=== PATIENT | female | born 1985 | race Caucasian/White ===

== ENCOUNTER 2016-11-18 05:47 | Inpatient (IN) | payer OTHER ==
--- NOTE | 2016-11-18 06:04 | P.HPOB ---
History of Present Illness H&P Date: 11/18/16 Chief Complaint: Patient is requesting elective induction of labor. This patient is a pleasant 31-year-old 3 para 1 female estimated date of confinement 11/19/2016 estimated gestational age 39-6/7 weeks who presents to labor and delivery for requested induction of labor. Patient's care has been uncomplicated. Review of Systems Constitutional: Denies chills, Denies fever Ears, nose, mouth and throat: Denies headache, Denies sore throat Cardiovascular: Denies chest pain, Denies shortness of breath Respiratory: Denies cough Gastrointestinal: Reports heartburn Genitourinary: Reports Menstruation: Reports amenorrhea Musculoskeletal: Denies myalgias Integumentary: Denies pruritus, Denies rash Neurological: Denies numbness, Denies weakness Psychiatric: Denies anxiety, Denies depression Endocrine: Denies fatigue, Denies weight change Past Medical History Past Medical History: No Reported History History of Any Multi-Drug Resistant Organisms: None Reported Past Surgical History: Tonsillectomy Additional Past Surgical History / Comment(s): Patient's had a cyst removed from her right wrist and a D&C. Past Anesthesia/Blood Transfusion Reactions: No Reported Reaction Past Psychological History: No Psychological Hx Reported Smoking Status: Never smoker Past Alcohol Use History: None Reported Past Drug Use History: None Reported Medications and Allergies Home Medications Medication Instructions Recorded Confirmed Type Pnv with Ca,No.72/Iron/FA 1 PO DAILY 11/18/16 History [ Plus Tablet] Allergies Allergy/AdvReac Type Severity Reaction Status Date / Time Penicillins AdvReac Rash/Hives Verified 11/18/16 06:01 Exam - OBG Physical Exam Abdomen: bowel sounds normal, no diffuse tenderness, no bruit present, no guarding noted, no hepatomegaly, no splenomegaly, no mass Vulva: both: normal Vagina: normal moisture, no discharge Cervix: Cervix in the office is 2 cm and soft. Cervix: no lesion, no discharge Uterus: enlarged (Fundal height is consistent with a term .) Results blood work shows she is O positive, rubella immune, RPR nonreactive, hepatitis B-, group B strep was negative, Glucola was normal, ultrasounds have been normal. Assessment and Plan (1) Third trimester Narrative/Plan: This is a pleasant 31-year-old 3 para 1 female 39-6/7 weeks gestation who requests induction of labor. Plan is induction of labor and anticipate vaginal delivery. Status: Acute (2) Elective induction of labor planned Status: Acute
[2016-11-18] MEDS ORDERED: CARBOPROST TROMETHAMINE 250 MCG/ML 1 ML AMP IM PRN (06:11)
[2016-11-18] MEDS ORDERED: METHYLERGONOVINE 0.2 MG/ML 1 ML AMP IM PRN (06:11)
[2016-11-18] MEDS ORDERED: OXYTOCIN 30 UNITS/500 ML NS 30 UNIT in SALINE 1 500ML.BAG IV SCH ×2 (06:11→19:59)
[2016-11-18] MEDS ORDERED: TERBUTALINE 1 MG/ML VIAL SQ PRN (06:11)
[2016-11-18] MEDS ORDERED: LIDOCAINE 1% (PF) 10 MG/ML (30 ML SDV) SQ PRN (06:11)
[2016-11-18] MEDS ORDERED: OXYTOCIN 10 UNIT/ML 1 ML VIAL IM PRN (06:11)
[2016-11-18] MEDS: LACTATED RINGERS 1,000 ML IV SCH ×3 (06:20→15:44)
[2016-11-18 06:26] LABS: Basophils # (A) 0.1 k/uL (0-0.2); Basophils % (A) 0 %; CH 28.6; Eosinophils # (A) 0.2 k/uL (0-0.7); Eosinophils % (A) 2 %; HCT 32.7 % (34.0-46.0); HDW 3.23; HGB 10.7 gm/dL (11.4-16.0); Luc # (Auto) 0.24; Luc % (Auto) 2; Lymphocytes # (A) 1.3 k/uL (1.0-4.8); Lymphocytes % (A) 11 %; MCH 28.6 pg (25.0-35.0); MCHC 32.8 g/dL (31.0-37.0); MCV 87.2 fL (80.0-100.0); Mean Platelet Volume 6.9; Monocytes # (A) 0.7 k/uL (0-1.0); Monocytes % (A) 6 %; Neutrophils # (A) 8.6 k/uL (1.3-7.7); Neutrophils % (A) 78 %; RBC 3.75 m/uL (3.80-5.40); WBC 11.1 k/uL (3.8-10.6); WBC (Perox) 11.82
[2016-11-18 07:27] VITALS: BMI 31.6
[2016-11-18] MEDS ORDERED: BUTORPHANOL 1 MG/ML 1 ML VIAL IV PRN (11:41)
[2016-11-18] MEDS ORDERED: fentaNYL (PF) 50 MCG/ML 5 ML AMP ONE (15:25)
[2016-11-18] MEDS ORDERED: SODIUM CHLORIDE 0.9% 100 ML BAG ONE (15:25)
[2016-11-18] MEDS ORDERED: BUPIVACAINE (PF) 0.25% 30 ML VIAL ONE (15:25)
[2016-11-18] MEDS ORDERED: BUPIVACAINE (PF) 0.25% 25 ML, fentaNYL (PF) 200 MCG in SODIUM CHLORIDE 0.9% 71 ML EPIDURAL ONE (16:00)
[2016-11-18] MEDS ORDERED: CLINDAMYCIN 900 MG in DEXTROSE 5% IN WATER 50 ML IVPB STA ×2 (16:53)
--- NOTE | 2016-11-18 19:55 | P.PROBDLV ---
Vaginal Delivery Note - . Vaginal Delivery Note: Normal vaginal delivery viable female Apgars 9 and 9 delivery time is 1940 hrs. Please see dictated H&P for intimate details of this patient's admission. Brief summary this is a pleasant 31-year-old 3 para 1 female 39-6/7 weeks gestation who is admitted to labor and delivery this morning for requested induction of labor. On admission patient is to summary dilators artificial rupture membranes for clear fluid. Labor is augmented with Pitocin. Patient does progress and gets an epidural for pain control proximally 4-5 cm dilated. Patient thereafter does continue to progress and pushes the head to the perineum. Posterior perineum is supported and we have controlled delivery of the infant's head over the intact perineum. Mouth and nares are bulb suctioned there is no evidence of nuchal cord. With gentle downward traction we then have delivery the anterior and posterior shoulder and rest this 's body. Is a vigorous viable female infant Apgars are 9 and 9 delivery time is 1940 hrs. After delivery of the the umbilical cord is doubly clamped and cut and appears to be trivascular. The is late on the mother's abdomen. The placenta is spontaneously delivered intact. Estimated blood loss is 100 mL. There are no lacerations no repair. All counts are correct 3.
[2016-11-18] MEDS ORDERED: diphenhydrAMINE 50 MG/ML 1 ML VIAL IVP PRN (19:59)
[2016-11-18] MEDS ORDERED: HYDROCORTISONE 2.5% RECTAL CREAM 30 GM TUBE RECTAL PRN (19:59)
[2016-11-18] MEDS ORDERED: BENZOCAINE/MENTHOL SPRAY 1 GM/SPRAY AEROSOL TOPICAL PRN (19:59)
[2016-11-18] MEDS ORDERED: Acetaminophen-Codeine 300-30mg TAB PO PRN ×2 (19:59)
[2016-11-18] MEDS ORDERED: ACETAMINOPHEN TAB 325 MG TAB PO PRN (19:59)
[2016-11-18] MEDS ORDERED: ZOLPIDEM 5 MG TAB PO PRN (19:59)
[2016-11-18] MEDS ORDERED: diphenhydrAMINE 25 MG CAP PO PRN (19:59)
[2016-11-18] MEDS ORDERED: WITCH HAZEL 1 EACH MED..PAD TOPICAL PRN (19:59)
[2016-11-18] MEDS ORDERED: LANOLIN CREAM 5 GM TUBE TOPICAL PRN (19:59)
[2016-11-18] MEDS ORDERED: SIMETHICONE 80 MG CHEWABLE PO PRN (19:59)
[2016-11-18] MEDS: IBUPROFEN 600 MG TAB PO PRN (20:12)
[2016-11-18] MEDS: SENNOSIDES-DOCUSATE SODIUM 1 EACH TAB PO SCH (20:40)
--- NOTE | 2016-11-19 06:21 | P.PNOBGVD ---
Subjective - Subjective Patient reports: Reports appetite normal, Reports voiding normally, Reports pain well controlled, Reports ambulating normally [place]: doing well Objective - Latest Vital Signs Latest vital signs: Vital Signs Temp Pulse Resp BP 11/19/16 04:00 97.3 F L 81 16 118/75 11/18/16 23:38 97.9 F 108 H 16 101/71 11/18/16 21:45 97.7 F 113 H 16 105/62 11/18/16 21:15 92 16 129/70 11/18/16 20:45 112 H 16 126/72 11/18/16 20:30 102 H 16 120/64 11/18/16 20:15 103 H 16 122/74 11/18/16 20:00 106 H 16 129/75 11/18/16 19:45 105 H 16 137/82 11/18/16 07:20 95.7 F L 107 H 18 110/72 Intake and Output 11/18/16 11/18/16 11/19/16 14:59 22:59 06:59 Intake Total 1000 1213.4 600 Output Total 150 Balance 1000 1063.4 600 Intake: IV 1200 Lactated Ringers 1,000 ml 800 @ 125 mls/hr IV .Q8H LENA Rx#:[id number] Oxytocin 30 Units/500 ml 400 Ns 30 unit In Saline 1 500ml.bag @ 120 MILLIUNIT /MIN 120 mls/hr IV . Q4H10M LENA Rx#:[id number] Intake, IV Titration 1000 13.4 Amount Lactated Ringers 1,000 ml 1000 @ 125 mls/hr IV .Q8H LENA Rx#:[id number] Oxytocin 30 Units/500 ml 13.4 Ns 30 unit In Saline 1 500ml.bag @ 1 MILLIUNIT/ MIN 1 mls/hr IV .Q24H LENA Rx#:[id number] Other 600 Output: Estimated Blood Loss 150 Other: Weight 83.461 kg Patient Weight 11/19/16 06:59 Weight 83.461 kg - Exam Lungs: bilateral: normal Chest: Normal S1, Normal S2 Extremities: Present: normal Abdomen: Present: normal appearance, soft Uterus: Present: normal, firm - Labs Labs: Abnormal Lab Results - Last 24 Hours (Table) 11/18/16 Range/Units 06:03 WBC 11.1 H (3.8-10.6) k/uL RBC 3.75 L (3.80-5.40) m/uL Hgb 10.7 L (11.4-16.0) gm/dL Hct 32.7 L (34.0-46.0) % Neutrophils # 8.6 H (1.3-7.7) k/uL Assessment and Plan (1) Third trimester Narrative/Plan: This is day #1. Patient is resting without complaints. Vital signs are stable she is afebrile. Uterus is firm nontender she's having normal lochia. My impression this is a normal course. Plan is to continue routine care and discharge home tomorrow. Current Visit: Yes Status: Acute Code(s): Z33.1 - STATE, INCIDENTAL SNOMED Code(s): 31590170 (2) Elective induction of labor planned Current Visit: Yes Status: Acute Code(s): BWA4223 - SNOMED Code(s): 627193124
[2016-11-19] MEDS: SENNOSIDES-DOCUSATE SODIUM 1 EACH TAB PO SCH ×2 (08:02→20:16)
[2016-11-19] MEDS: IBUPROFEN 600 MG TAB PO PRN ×2 (08:03→20:13)
--- NOTE | 2016-11-20 06:06 | P.PNOBGVD ---
Subjective - Subjective Patient reports: Reports appetite normal, Reports voiding normally, Reports pain well controlled, Reports ambulating normally : doing well Objective - Latest Vital Signs Latest vital signs: Vital Signs Temp Pulse Pulse Resp BP Pulse Ox 11/20/16 00:00 97.5 F L 81 16 122/74 11/19/16 16:00 98.6 F 91 20 117/74 98 11/19/16 08:19 98.5 F 86 16 101/63 98 Intake and Output 11/19/16 11/19/16 11/20/16 14:59 22:59 06:59 Intake Total 540 Balance 540 Intake: Oral 540 Other: # Voids 1 # Bowel Movements 0 - Exam Lungs: bilateral: normal Chest: Normal S1, Normal S2 Extremities: Present: normal Abdomen: Present: normal appearance, soft Uterus: Present: normal, firm Assessment and Plan (1) Third trimester Narrative/Plan: day #2. Patient is resting without complaints. Vital signs are stable she is afebrile. Uterus is firm nontender she's having normal lochia. I impression normal course. Plan is to continue routine care discharge home today. Current Visit: Yes Status: Acute Code(s): Z33.1 - STATE, INCIDENTAL SNOMED Code(s): 41959208 (2) Elective induction of labor planned Current Visit: Yes Status: Acute Code(s): [id number] - SNOMED Code(s): 356795737
--- NOTE | 2016-11-20 06:08 | P.DS ---
Providers Date of admission: 11/18/16 05:47 Expected date of discharge: 11/20/16 Attending physician: Kendell Velez Primary care physician: Kendell Velez - Discharge Diagnosis(es) (1) Third trimester Current Visit: Yes Status: Acute (2) Elective induction of labor planned Current Visit: Yes Status: Acute Hospital Course: Please see dictated H&P for intimate details of this patient's admission. Brief summary this pleasant 31-year-old 3 para 1 female 39-6/7 weeks gestation admitted for requested induction of labor. Patient is admitted she is uncomplicated induction of labor on have a vaginal delivery viable female infant. Please see dictated delivery note. day #2 patient's felt be stable for discharge home follow up with me in 6 weeks. Procedures: Induction of labor and normal vaginal delivery. Patient Condition at Discharge: Good Plan - Discharge Summary New Discharge Prescriptions: Acetaminophen-Codeine 300-30mg [Tylenol w/codeine #3] 1 - 2 each PO Q4HR PRN # 30 tab PRN Reason: Mild Pain exceeding Tylenol Ibuprofen [Motrin] 600 mg PO Q6HR PRN #40 tab PRN Reason: Mild Pain Or Fever >= 100.5 Discharge Medication List Pnv with Ca,No.72/Iron/FA [ Plus Tablet] 1 tab PO DAILY 11/18/16 [ History] Acetaminophen-Codeine 300-30mg [Tylenol w/codeine #3] 1 - 2 each PO Q4HR PRN # 30 tab 11/20/16 [Rx] Ibuprofen [Motrin] 600 mg PO Q6HR PRN #40 tab 11/20/16 [Rx] Follow up Appointment(s)/Referral(s): Kendell Velez MD [Primary Care Provider] - 12/30/16 8:30 am Patient Instructions/Handouts: Vaginal Delivery (DC) Activity/Diet/Wound Care/Special Instructions: No intercourse or anything per vagina for 6 weeks. Please call if any fever, chills, excessive vaginal bleeding, and/or abdominal pain. Discharge Disposition: HOME SELF-CARE
[2016-11-20 08:38] VITALS: BP 109/66; PULSE 83; RESP 20; TEMP 97.8
[2016-11-20] MEDS: SENNOSIDES-DOCUSATE SODIUM 1 EACH TAB PO SCH (08:38)
== END 2016-11-20 11:20 | disposition home or self-care (01) | DRG 775 ==
LOC: 4FBP 05:47
PROVIDERS: ADMIT Obstetrics & Gynecology; ATTEND Obstetrics & Gynecology
PROC: 10E0XZZ Delivery of Products of Conception, External Approach (ICD-10-PCS; principal; 2016-11-18)
PROC: 10907ZC Drainage of Amniotic Fluid, Therapeutic from Products of Conception, Via Natural or Artificial Opening (ICD-10-PCS; 2016-11-18)
DX: O80 Encounter for full-term uncomplicated delivery (principal); Z37.0 Single live birth; Z3A.39 39 weeks gestation of pregnancy
CPT/HCPCS: 85025; 88307

== ENCOUNTER → 2017-02-03 | Outpatient (CLI) | payer OTHER ==
[2017-02-03 11:25] LABS: Basophils # (A) 0.1 k/uL (0-0.2); Basophils % (A) 1 %; CH 28.4; CHCM 31.7; Eosinophils # (A) 0.1 k/uL (0-0.7); Eosinophils % (A) 2 %; HCT 43.8 % (34.0-46.0); HDW 2.42; HGB 14.3 gm/dL (11.4-16.0); Luc # (Auto) 0.15; Luc % (Auto) 3; Lymphocytes # (A) 1.8 k/uL (1.0-4.8); Lymphocytes % (A) 34 %; MCH 29.2 pg (25.0-35.0); MCHC 32.6 g/dL (31.0-37.0); MCV 89.7 fL (80.0-100.0); Mean Platelet Volume 6.9; Monocytes # (A) 0.4 k/uL (0-1.0); Monocytes % (A) 7 %; Neutrophils # (A) 2.9 k/uL (1.3-7.7); Neutrophils % (A) 54 %; RBC 4.88 m/uL (3.80-5.40); RDW 15.3 % (11.5-15.5); WBC 5.3 k/uL (3.8-10.6); WBC (Perox) 5.47
== END | disposition home or self-care (01) ==
LOC: LABPAT 10:15
PROVIDERS: ATTEND Obstetrics & Gynecology
DX: Z01.812 Encounter for preprocedural laboratory examination (principal)
CPT/HCPCS: 85025

== ENCOUNTER 2017-02-10 05:53 | Day surgery (SDC) | payer OTHER ==
[2017-02-06 11:10] VITALS: BMI 25.7
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
[~2017-02-10 05:53] MED LIST: DEXAMETHASONE SOD PHOSPHATE 10 MG/ML 1 ML VIAL IV ONE; HYDROmorphone 1 MG/ML 1 ML SYRINGE IVP PRN; LACTATED RINGERS 1,000 ML IV SCH; LIDOCAINE 1% 20 ML VIAL (10MG/ML) FOR IV START INTRADERMA PRN; ONDANSETRON 4 MG/2 ML VIAL IVP ONE; Pre Op ABX Message 1 EACH MISC MISCELLANE ONE; SCOPOLAMINE 1.5MG/72HR PATCH TRANSDERM ONE
[2017-02-10] MEDS ORDERED: BUPIVACAINE (PF) 0.5% 30 ML VIAL SQ ONE ×2 (06:48→07:31)
[2017-02-10] MEDS ORDERED: LIDOCAINE 1% INJ 10MG/ML (20 ML MDV) ONE (06:54)
[2017-02-10] MEDS ORDERED: NEOSTIGMINE 1 MG/ML 10 ML VIAL ONE (06:54)
[2017-02-10] MEDS ORDERED: MIDAZOLAM 2 MG/2 ML VIAL ONE (06:54)
[2017-02-10] MEDS ORDERED: SUCCINYLCHOLINE CHLORIDE 100 MG/5 ML SYR IV ONE (06:54)
[2017-02-10] MEDS ORDERED: GLYCOPYRROLATE 0.2 MG/ML 2 ML VIAL ONE (06:54)
[2017-02-10] MEDS ORDERED: PROPOFOL 10 MG/ML 20 ML VIAL IV ONE (06:54)
[2017-02-10] MEDS ORDERED: ROCURONIUM BROMIDE 10 MG/ML 10 ML VIAL IV ONE (06:54)
[2017-02-10] MEDS ORDERED: KETOROLAC 30 MG/ML 1 ML VIAL ONE (06:54)
[2017-02-10] MEDS ORDERED: fentaNYL (PF) 50 MCG/ML 2 ML AMP ONE (06:54)
--- NOTE | 2017-02-10 07:44 | P.OP ---
Date of Procedure: 02/10/17 Preoperative Diagnosis: Multi parity desires permanent sterilization. Postoperative Diagnosis: Same Procedure(s) Performed: Laparoscopic bilateral fallopian tube cauterization Anesthesia: KILOA Surgeon: Kendell Velez Estimated Blood Loss (ml): 10 Urine output (ml): 5 Pathology: none sent Condition: stable Disposition: PACU Indications for Procedure: Please see dictated H&P for intimate details of this patient's admission. Brief summary is a pleasant 31-year-old multigravida patient who is requesting laparoscopic tubal cauterization for permanent sterilization. Patient and I have discussed the surgery and alternatives. She understands the surgery is considered permanent although it does have a failure rate of approximately 20- 25 per thousand procedures done. She understands that if she does become she has a 50% chance of a tubal or ectopic . Patient also understands the surgery itself has risks including risks of infection, bleeding , possible injury bowel, bladder, vessels, and/or other organs. All the patient 's questions are answered and a written consent is obtained. Operative Findings: This patient had a normal-appearing pelvis. The appendix appeared normal as well as did the upper abdomen. Description of Procedure: This patient is taken to the operating room where she is laid in the supine position. She subsequently undergoes general endotracheal anesthesia without incident. With an adequate level of anesthesia she's placed in dorsal lithotomy position. She has a vaginal perineal abdominal prep and drape. I first good on below placed a speculum into the vagina and visualize the cervix. A long Allis clamp was placed on the anterior lip of the cervix. A large acorn cannula is then placed in the endocervix and attached to the Allis clamp. The bladder is then drained for 5 mL of urine with a red Bolaños and this catheter is left in place. I then changed gloves and go up above. I make a 10 mm infraumbilical incision. Using a 10 mm bladeless optical trocar I place the trocar directly into the peritoneal cavity. Pneumoperitoneum was then created to 12 mm of carbon dioxide gas. With this done I then make a 5 mm incision approximately 2 fingerbreadths above the symphysis pubis. Using a bladed lists trocar I a small trocar directly into the peritoneum. Uterus tubes and ovaries were then visualized and appear normal. The upper abdomen appears normal. Using bipolar cautery I then grasped proximally 4 cm from the cornual insertion of the fallopian tube on the left side and a 2-3 cm area the tube is completely cauterized. Similar technique on the right side with similar results. With this completed I make a final inspection of the abdomen appears normal and hemostatic. I then removed the lower trocar and good hemostasis is noted. Pneumoperitoneum was reduced. The upper trochars then removed. Incisions are closed using a 4-0 Vicryl. Steri-Strips and sterile dressing is applied. I infiltrate both incisions with half percent Marcaine for postoperative pain control. All counts are correct 3. There are no complications. Patient is awakened from anesthesia and taken recovery room in satisfactory condition.
[2017-02-10 07:55] VITALS: TEMP 97.6
[2017-02-10 08:28] VITALS: RESP 18
[2017-02-10 09:34] VITALS: BP 115/72
[2017-02-10 09:55] VITALS: PULSE 51
== END 2017-02-10 09:55 | disposition home or self-care (01) ==
LOC: OR 05:53
PROVIDERS: ATTEND Obstetrics & Gynecology
DX: Z30.2 Encounter for sterilization (principal); Z79.899 Other long term (current) drug therapy; Z88.0 Allergy status to penicillin
CPT/HCPCS: 58670; 81025; J2250; J2710; J2405; J2001; J3010; J1885; J0330; J2704

== ENCOUNTER → 2020-09-27 | Outpatient (CLI) | payer OTHER ==
--- NOTE | 2020-09-28 05:38 | US ---
EXAMINATION TYPE: US transvaginal DATE OF EXAM: 09/27/2020 COMPARISON: NONE CLINICAL HISTORY: 35-year-old female N92.1 Excessive and frequent menstruation with irregularity. TECHNIQUE: Transvaginal (TV). Date of LMP: 09/20/20 FINDINGS: EXAM MEASUREMENTS: Uterus: 8.6 x 4.0 x 5.7 cm Endometrial Stripe: 0.7 cm Right Ovary: 2.3 x 1.6 x 1.7 cm (volume of 3.1 mL) Left Ovary: 2.4 x 1.7 x 1.5 cm (volume of 3.2 mL) 1. Uterus: Anteverted and otherwise wnl. There is a small, 5 mm cervical nabothian cyst noted. 2. Endometrium: wnl 3. Right Ovary: wnl 4. Left Ovary: wnl 5. Bilateral Adnexa: wnl 6. Posterior cul-de-sac: wnl IMPRESSION: Small ovaries. Small, 5 mm cervical nabothian cyst. Otherwise, unremarkable transvaginal ultrasound o f the pelvis.
== END | disposition home or self-care (01) ==
LOC: RADUSWWP 16:35
PROVIDERS: ATTEND Obstetrics & Gynecology
DX: N88.8 Other specified noninflammatory disorders of cervix uteri (principal)
CPT/HCPCS: 76830